=== PATIENT | female | born 1950 | race Asian ===

== ENCOUNTER 2017-04-20 15:57 | Emergency (ER) | payer OTHER ==
[~2017-04-20] VITALS: Ht 149.9 cm; Wt 56.7 kg
--- NOTE | ~2017-04-20 | EKG ---
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 VAN : 1950 Requested By: Pramod Santoyo Order Number: [id number] MD: Ruperto Hutchinson Measurements Intervals [place] Rate: 57 P: 18 NH: 158 QRS: 39 QRSD: 100 T: 10 QT: 439 QTc: 428 Interpretive Statements Sinus rhythm Abnormal R-wave progression, early transition No previous ECG available for comparison Electronically Signed On 04-20-2017 17:17:54 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
[2017-04-20] MEDS ORDERED: [UNRECOGNIZED DRUG - OTHER] PO (16:05)
[2017-04-20] MEDS ORDERED: SYNTHROID100 MCG PO (16:06)
[2017-04-20] MEDS ORDERED: [UNRECOGNIZED DRUG - OTHER] PO (16:06)
[2017-04-20] MEDS ORDERED: COZAAR 50 MG TA50 M2 PO (16:07)
[2017-04-20] MEDS ORDERED: METFORMIN HCL500 MG PO (16:08)
[2017-04-20 17:17] LABS: HEMATOCRIT 37.6 % (37.0-47.0); HEMOGLOBIN 11.8 gm/dL (12.0-15.0); MCH 19.5 pg (26.0-34.0); MCHC 31.4 g/dL (28.0-37.0); MCV 61.9 fL (80.0-100.0); RBC 6.07 mil/uL (4.20-5.00); RDW 17.3 % (10.5-14.5); WBC 12.5 thou/uL (4.0-11.0)
[2017-04-20 17:57] LABS: ANION GAP 5 mmol/L (7-16); BUN 17 mg/dL (7-18); CALCIUM 9.2 mg/dL (8.5-10.1); CHLORIDE 104 mmol/L (98-107); CO2 29 mmol/L (21-32); CREATININE 0.7 mg/dL (0.6-1.0); GLUCOSE 93 mg/dL (74-106); SODIUM 138 mmol/L (136-145)
[2017-04-20 18:06] LABS: TROPONIN-I < 0.04 ng/mL (<0.06)
[2017-04-20] MEDS ORDERED: HYDROCHLOROTHIA25 M2 PO (18:12)
[2017-04-20] MEDS ORDERED: SYNTHROID112 MCG PO (18:12)
== END 2017-04-20 18:50 | disposition home or self-care (01) ==
LOC: ER 15:57
PROVIDERS: Emergency Medicine; Physician Assistant
DX: I10 Essential (primary) hypertension (principal); E03.9 Hypothyroidism, unspecified; E11.9 Type 2 diabetes mellitus without complications